=== PATIENT | female | born 1995 | race Caucasian/White ===

== ENCOUNTER 2018-02-05 12:36 | Emergency (ER) | payer BC ==
[~2018-02-05] VITALS: Ht 167.6 cm; Wt 59.0 kg
[2018-02-05 12:39] VITALS: TEMP 37.1; Ht 167.6 cm; Wt 59.0 kg
[2018-02-05] MEDS ORDERED: BCPILLS PO (13:25)
[2018-02-05] MEDS ORDERED: POLYCAP4 PO (13:25)
--- NOTE | 2018-02-05 13:41 | EMERGENCY ROOM VISIT NOTE ---
History Report prepared by Lionel: Jero Ang Under the Supervision of: Dr. Meliton Duke M.D. First contact with patient: 12:57 Chief Complaint: DIZZY Stated Complaint: DIZZY, WEAKNESS, PURPLE FINGERNAILS Nursing Triage Summary: pt to the ED with c/o dizziness for a couple day and noticed that her finger nails are blue hx of previous transfusions due to anemia History of Present Illness The patient is a 22 year old female who presents to the Emergency Room with complaints of constant lightheadedness that began today. She reports her symptoms are worsened with standing up. The patient reports that she has a history of anemia. She reports that her lowest count was in March 2017 when her count was a 6. The patient states that at that time, she noticed that her skin was turning yellow. The patient states that she had a blood transfusion for her low count. She reports that since her transfusion, she has seen a Sprigger. The patient states that the physician did not see any GI bleeding. She reports that her last Hemoglobin count was 10. The patient states that today she noticed she has been lightheaded, which is worsened with standing up. She reports that she also noticed her skin has become mildly yellow in appearance and her nails are slightly blue. The patient states that she has been short of breath, but reports that she is typically short of breath. She denies cough, congestion, fever, chills, sick contact, possible , a history of thyroid problems. Source of History: patient Onset: today Position: other (global) Quality: other (lightheaded) Timing: constant Modifying Factors (Worsening): other (standing up) Associated Symptoms: + SOB, No fevers, No chills, No cough Note: Associated symptoms: yellow skin, blue nails Review of Systems See HPI for pertinent positives & negatives. A total of 10 systems reviewed and were otherwise negative. Past Medical & Surgical Medical Problems: (1) Anemia (2) History of blood transfusion Family History Patient reports no known family medical history. Social History Marital Status: single Housing Status: lives with roommate Occupation Status: [employer] Current/Historical Medications Scheduled Control Pills ( Control Pills), 1 TAB PO DAILY Polysaccharide Iron Complex (Iferex 150), 150 MG PO DAILY Allergies Coded Allergies: No Known Allergies (Unverified , 02/05/18) Physical Exam Vital Signs Date Time Temp Pulse Resp B/P (MAP) Pulse Ox O2 Delivery O2 Flow Rate FiO2 02/05/18 15:40 54 20 113/78 98 Room Air 02/05/18 14:15 61 18 116/73 100 Room Air 65 116/78 57 133/83 02/05/18 14:15 61 18 116/73 100 Room Air 02/05/18 12:39 37.1 78 18 168/82 98 Physical Exam GENERAL: Patient is in no acute distress. HEENT: No acute trauma, normocephalic atraumatic, mucous membranes moist, no nasal congestion, no scleral icterus. NECK: No stridor, no adenopathy, no meningismus, trachea is midline. LUNGS: Clear to auscultation bilaterally, no wheeze, no rhonchi, breath sounds equal. HEART: 2/6 systolic murmur with a regular rate and rhythm. ABDOMEN: Soft, nontender, bowel sounds positive, no hernias, no peritonitis. EXTREMITIES: No cyanosis or edema, full range of motion of all the joints without pain or difficulty, no signs for acute trauma. NEUROLOGIC: Oriented x 3, no acute motor or sensory deficits, no focal weakness. SKIN: No rash, no jaundice, no diaphoresis. Medical Decision & Procedures Laboratory Results 02/05/18 13:30 02/05/18 13:30 Test 02/05/18 13:30 02/05/18 14:15 Red Blood Count 4.27 M/uL (4.2-5.4) Mean Corpuscular Volume 79.2 fL (80-100) Mean Corpuscular Hemoglobin 24.8 pg (25-34) Mean Corpuscular Hemoglobin Concent 31.4 g/dl (32-36) RDW Standard Deviation 41.3 fL (36.4-46.3) RDW Coefficient of Variation 14.4 % (11.5-14.5) Mean Platelet Volume 9.0 fL (7.4-10.4) Anion Gap 6.0 mmol/L (3-11) Est Creatinine Clear Calc Drug Dose 107.6 ml/min Estimated GFR () 127.9 Estimated GFR (Non- 110.4 BUN/Creatinine Ratio 11.5 (10-20) Calcium Level 8.3 mg/dl (8.5-10.1) Magnesium Level 2.3 mg/dl (1.8-2.4) Total Bilirubin 0.5 mg/dl (0.2-1) Aspartate Amino Transf (AST/SGOT) 13 U/L (15-37) Alanine Aminotransferase (ALT/SGPT) 17 U/L (12-78) Alkaline Phosphatase 45 U/L (45-117) Total Protein 7.3 gm/dl (6.4-8.2) Albumin 3.8 gm/dl (3.4-5.0) Globulin 3.5 gm/dl (2.5-4.0) Albumin/Globulin Ratio 1.1 (0.9-2) Thyroid Stimulating Hormone (TSH) 1.910 uIu/ml (0.300-4.500) Human Chorionic Gonadotropin, Qual NEG (NEG) Urine Color YELLOW Urine Appearance CLEAR (CLEAR) Urine pH 7.5 (4.5-7.5) Urine Specific Winn 1.005 (1.000-1.030) Urine Protein NEG (NEG) Urine Glucose (UA) NEG (NEG) Urine Ketones NEG (NEG) Urine Occult Blood NEG (NEG) Urine Nitrite NEG (NEG) Urine Bilirubin NEG (NEG) Urine Urobilinogen NEG (NEG) Urine Leukocyte Esterase MODERATE (NEG) Urine WBC (Auto) /hpf (0-5) Urine RBC (Auto) /hpf (0-4) Urine Hyaline Casts (Auto) /lpf (0-5) Urine Epithelial Cells (Auto) /lpf (0-5) Urine Bacteria (Auto) (NEG) Urine RBC 0-4 /hpf (0-4) Urine WBC 1-5 /hpf (0-5) Urine Epithelial Cells 0-5 /lpf (0-5) Urine Other Crystals TALC (NONE PRSENT) Urine Bacteria NEG (NEG) Laboratory results reviewed by me. ED Course 1301: The patient was evaluated in room A10. A complete history and physical exam was performed. 1427: Orthostatic vital signs are negative. 1507: Reevaluated the patient. Discussed results and discharge instructions: She verbalized understanding and agreement. The patient is ready for discharge. Medical Decision The patient is a 22 year old female who presents to the Emergency Room with complaints of constant lightheadedness that began today. Differential diagnoses considered include anemia, electrolyte imbalance, viral illness, UTI, , and dehydration. There is no leukocytosis, the white count is actually slightly low. Patient is anemic with a hemoglobin of 10.6 however, as per the patient's history, she last had a hemoglobin value of around 10. No significant electrolyte abnormality, kidney failure or hepatitis. The patient appears to be in a euthyroid state. Urinalysis does not show infection. testing is negative. Orthostatic vital signs are negative. The patient was reassured by her testing. She may be somewhat dehydrated, she was told to be sure to drink plenty of fluid. She was told that she could be presenting with early viral illness. Patient was felt stable for discharge with outpatient follow-up. If she is worsening, she can return. Medication Reconcilliation Current Medication List: was personally reviewed by me Blood Pressure Screening Patient's blood pressure: Normal blood pressure Impression Primary Impression: Lightheadedness Additional Impression: Anemia Scribe Attestation The scribe's documentation has been prepared under my direction and personally reviewed by me in its entirety. I confirm that the note above accurately reflects all work, treatment, procedures, and medical decision making performed by me. Departure Information Dispostion Home / Self-Care Referrals No Doctor, Assigned (PCP) Forms HOME CARE DOCUMENTATION FORM, IMPORTANT VISIT INFORMATION Patient Instructions My [facility] Additional Instructions lab testing was all ok exam was ok--you do have a slight heart murmur as we discussed return if worsening see your doctor for a reheck as scheduled Problem Qualifiers
[2018-02-05 13:47] LABS: HEMATOCRIT 33.8 % (37-47); HEMOGLOBIN 10.6 g/dL (12.0-16.0); MEAN CELL VOLUME 79.2 fL (80-100); MEAN CORPUSCULAR HEMOGLOBIN 24.8 pg (25-34); MEAN CORPUSCULAR HGB CONC 31.4 g/dl (32-36); PLATELET COUNT 262 K/uL (130-400); RED CELL DISTRIBUTION WIDTH CV 14.4 % (11.5-14.5); RED CELL DISTRIBUTION WIDTH SD 41.3 fL (36.4-46.3); WHITE BLOOD COUNT 3.74 K/uL (4.8-10.8)
[2018-02-05 14:06] LABS: ALBUMIN 3.8 gm/dl (3.4-5.0); CALCIUM 8.3 mg/dl (8.5-10.1); CREATININE 0.77 mg/dl (0.60-1.20); POTASSIUM 3.6 mmol/L (3.5-5.1)
[2018-02-05 14:17] LABS: TOTAL PROTEIN 7.3 gm/dl (6.4-8.2)
[2018-02-05 15:40] VITALS: BP 113/78; PULSE 54; O2SAT 98
== END 2018-02-05 15:50 | disposition home or self-care (01) ==
LOC: C.EDB 12:37 → C.EDA 15:50
DX: R42 Dizziness and giddiness (principal); D64.9 Anemia, unspecified

== ENCOUNTER → 2018-07-02 | Outpatient (CLI) | payer BC ==
[~2018-07-02] MED LIST: BCPILLS PO; POLYCAP4 PO
[2018-07-02 15:31] LABS: BASO % 1.5 %; BASO ABS # 0.07 K/uL (0-0.2); EOS % 1.3 %; EOS ABS # 0.06 K/uL (0-0.5); HEMATOCRIT 40.5 % (37-47); HEMOGLOBIN 13.8 g/dL (12.0-16.0); IG# 0.01 K/uL (0.00-0.02); LYMPH % 30.2 %; LYMPH ABS # 1.43 K/uL (1.2-3.4); MEAN CELL VOLUME 91.8 fL (80-100); MEAN CORPUSCULAR HEMOGLOBIN 31.3 pg (25-34); MEAN CORPUSCULAR HGB CONC 34.1 g/dl (32-36); MEAN PLATELET VOLUME 9.6 fL (7.4-10.4); MONO % 6.5 %; MONO ABS # 0.31 K/uL (0.11-0.59); NEUT % 60.3 %; NEUT ABS # 2.86 K/uL (1.4-6.5); PLATELET COUNT 218 K/uL (130-400); RED CELL DISTRIBUTION WIDTH CV 13.1 % (11.5-14.5); RED CELL DISTRIBUTION WIDTH SD 43.3 fL (36.4-46.3); WHITE BLOOD COUNT 4.74 K/uL (4.8-10.8)
[2018-07-02 15:52] LABS: ALBUMIN 3.8 gm/dl (3.4-5.0); ALKALINE PHOSPHATASE 51 U/L (45-117); ALT/SGPT 20 U/L (12-78); AST/SGOT 19 U/L (15-37); BLOOD UREA NITROGEN 11 mg/dl (7-18); CALCIUM 8.7 mg/dl (8.5-10.1); CARBON DIOXIDE 28 mmol/L (21-32); CREATININE 0.71 mg/dl (0.60-1.20); GLUCOSE 87 mg/dl (70-99); POTASSIUM 3.6 mmol/L (3.5-5.1); SODIUM 139 mmol/L (136-145); TOTAL PROTEIN 7.6 gm/dl (6.4-8.2)
== END | disposition home or self-care (01) ==
LOC: C.CCL 14:39
PROVIDERS: ATTEND Internal Medicine Hematology & Oncology
DX: D50.8 Other iron deficiency anemias (principal)